=== PATIENT | male | born 1965 ===

== ENCOUNTER 2022-07-17 07:13 | Day surgery (SDC) | payer BC ==
[2022-07-10 13:35] VITALS: BMI 23.2
[2022-07-17] MEDS ORDERED: LIDOCAINE HCL 1%, 10 MG/ML (20ML VIAL) ONE (07:23)
[2022-07-17] MEDS ORDERED: LIDOCAINE HCL 2% (20ML MULTI-DOSE VIAL) ONE (07:23)
[2022-07-17] MEDS ORDERED: MIDAZOLAM HCL 2 MG/2 ML SINGLE DOSE VIAL ONE (08:13)
[2022-07-17] MEDS ORDERED: PROPOFOL 20 ML ONE (08:13)
[2022-07-17] MEDS ORDERED: GLYCOPYRROLATE 0.2 MG/1 ML VIAL ONE (08:14)
[2022-07-17] MEDS ORDERED: ceFAZolin SODIUM 1 GM VIAL ONE (08:14)
[2022-07-17] MEDS ORDERED: SODIUM CHLORIDE 0.9% P/F 10 ML VIAL IJ ONE (08:14)
[2022-07-17] MEDS ORDERED: LIDOCAINE HCL/PF 2% SDV 5ML VIAL ONE (08:14)
[2022-07-17] MEDS ORDERED: ONDANSETRON 4 MG/2 ML VIAL IVPUSH PRN (08:19)
[2022-07-17] MEDS ORDERED: PROMETHAZINE HCL 25 MG/1 ML VIAL IVPB PRN (08:19)
[2022-07-17] MEDS ORDERED: oxyCODONE HCL 5 MG TABLET PO PRN (08:19)
[2022-07-17] MEDS ORDERED: LACTATED RINGERS SOLUTION 1,000 ML IV SCH (08:30)
[2022-07-17] MEDS ORDERED: KETOROLAC TROMETHAMINE 30 MG/1 ML VIAL ONE (08:53)
[2022-07-17 09:57] VITALS: RESP 20; TEMP 97.8
[2022-07-17 10:25] VITALS: BP 122/86; PULSE 75
== END 2022-07-17 10:10 | disposition home or self-care (01) ==
LOC: FASU 07:13
PROVIDERS: ATTEND Orthopaedic Surgery Hand Surgery
PROC: 0RCW0ZZ Extirpation of Matter from Right Finger Phalangeal Joint, Open Approach (ICD-10-PCS; 2022-07-17)
PROC: 0JBJ0ZX Excision of Right Hand Subcutaneous Tissue and Fascia, Open Approach, Diagnostic (ICD-10-PCS; principal; 2022-07-17 09:00)
DX: M67.441 Ganglion, right hand (principal); M19.041 Primary osteoarthritis, right hand; M65.9 Synovitis and tenosynovitis, unspecified; M77.8 Other enthesopathies, not elsewhere classified
CPT/HCPCS: 88305-TC